=== PATIENT | male | born 1950 | race Caucasian/White ===

== ENCOUNTER → 2024-01-17 | Outpatient (CLI) | payer MEDICARE | END | disposition home or self-care (01) | LOC: RAH 13:40 | PROVIDERS: ATTEND Internal Medicine Cardiovascular Disease | DX: I08.0 Rheumatic disorders of both mitral and aortic valves (principal); I48.0 Paroxysmal atrial fibrillation | CPT/HCPCS: 93306 ==

== ENCOUNTER 2025-08-21 06:02 | Day surgery (SDC) | payer MEDICARE ==
--- NOTE | 2025-08-18 14:41 | EKG ---
[facility] Test Date: 2025-08-18 Test Time: 14:38:51 Pat Name: TRISTA PRATER Department: [facility] Room: Gender: M Certified Meeting Professional: [id number] : [id number] Requested By: IMELDA HORNE Order Number: [id number] Reading MD: Thaddeus Alba Measurements Intervals [place] Rate: 48 P: 81 OR: 222 QRS: 28 QRSD: 115 T: 40 QT: 500 QTc: 446 Interpretive Statements Sinus bradycardia Borderline prolonged OR interval Probable left atrial enlargement Nonspecific intraventricular conduction delay No previous ECG available for comparison Electronically Signed On 08-19-2025 20:11:03 ENLISTED ADVISOR by Thaddeus Alba Please click the below link to view image of tracing.
[2025-08-18 14:46] LABS: IMMATURE GRANULOCYTE ABSOLUTE 0.01 K/uL (0-1); NUCLEATED RED BLOOD CELLS 0.0 % (0.0-0.19); PLATELET COUNT (AUTO) 225 K/uL (130-400); RED BLOOD CELL COUNT(AUTO) 4.03 MIL/uL (4.50-6.20); RED CELL DISTRIBUTION WIDTH 13.1 % (11.0-15.5); WHITE BLOOD COUNT (AUTO) 5.2 K/uL (4.8-10.8)
[2025-08-18 14:55] LABS: CREATININE 1.2 mg/dL (0.5-1.3); GLOMERULAR FILTR. RATE CALC 64.0 mL/min (>90); GLUCOSE,RANDOM 91.0 mg/dL (70-105); SODIUM SERUM 139.0 mmol/L (136-145); UREA NITROGEN, BLOOD 17.0 mg/dL (7-18)
[2025-08-18 15:00] LABS: INR 1.03 (0.85-1.15)
[2025-08-18 15:07] VITALS: BP 115/67; PULSE 44; RESP 16; TEMP 98.3
[~2025-08-21] VITALS: Ht 175.3 cm; Wt 82.2 kg
[2025-08-21] VITALS (19 sets, daily range): BP systolic 96–128; BP diastolic 59–75; PULSE 47–56; RESP 11–17; TEMP 97–97.4
[~2025-08-21 06:02] MED LIST: APIX5TAB PO; FLEC50TA3 PO; METO25TA6 PO
[2025-08-21] MEDS ORDERED: MIDAZOLAM HCL 1 MG/ML 2ML VIAL ONE (06:56)
[2025-08-21] MEDS ORDERED: LIDOCAINE HCL 400MG/20ML VIAL ONE (07:19)
[2025-08-21] MEDS ORDERED: SODIUM BICARB 50MEQ 50ML VIAL 50 ML ONE (07:20)
[2025-08-21] MEDS ORDERED: HEParin-NS 1,000 UNIT/500 ML 1,000 ML IV ONE (07:20)
[2025-08-21] MEDS: 0.9%NACL 1000ML 1,000 ML IV ONE (07:52)
[2025-08-21] MEDS ORDERED: 0.9%NACL 1000ML 1,000 ML IV SCH (08:00)
[2025-08-21] MEDS ORDERED: ATROPINE 1MG SYG IVP ONE (08:11)
[2025-08-21] MEDS ORDERED: PROTamine SULFate 10 MG/ML 25ML VIAL IV ONE (12:16)
[2025-08-21] MEDS ORDERED: SUGAMMADEX SODIUM 200 MG/2 ML VIAL IV ONE (12:37)
[2025-08-21] MEDS ORDERED: SUCR1TAB2 PO (13:08)
[2025-08-21] MEDS ORDERED: PANT40TA55 PO (13:08)
[2025-08-21] MEDS ORDERED: METO-408 PO (13:09)
[2025-08-21] MEDS: SUCRALFATE 1 GM/10 ML PO ONE (15:54)
== END 2025-08-21 16:20 | disposition home or self-care (01) ==
LOC: DAH 06:02
PROVIDERS: ATTEND Internal Medicine Cardiovascular Disease
DX: I48.0 Paroxysmal atrial fibrillation (principal); Z79.899 Other long term (current) drug therapy
CPT/HCPCS: 80048; 85025; 85610; 85730; 36415; 93005; 93656; 85347 ×9; C1894 ×3; C1732 ×3; C1760 ×3; A4649 ×2; C1766; J3010 ×3; J3490 ×5; J7030; J2720; J2250; J2704 ×2; J2405 ×2; J2371 ×3; A4215; A4222; A4221; A4663; A4216; A4606; J1644 ×4; A4223 ×3; J0461